=== PATIENT | male | born 1960 | race Caucasian/White ===

== ENCOUNTER 2019-06-18 15:04 | Emergency (ER) | payer SELFPAY ==
--- NOTE | 2019-06-18 15:17 | NUR ---
rn's x 2 called for pt to triage and work up and per multiple er pts, this named pt was outside smoking. pt didnt come back to window to update he was here until 152 and stated he wanted to go to [facility], where his doctor is located. appears in no acute distress.
== END 2019-06-18 15:26 | disposition short-term general hospital (02) ==
LOC: ER 15:04
DX: I50.9 Heart failure, unspecified (principal)